=== PATIENT | male | born 1955 | race Caucasian/White ===

== ENCOUNTER → 2020-02-22 | Outpatient (CLI) | payer MEDICARE, BC ==
[~2020-02-22] MED LIST: /ZOLP6ER; ACCU5TAB7; AMLO1TAB24 PO; COLA100C2; DECADRON; FLOM0.4C39 PO; GABA-1171 PO; KEPPRA; LEVE750T5 PO; LEXA1TAB; LORA0.5T; NEUR100C PO; NORV5TAB; PERC5TAB8; PROT1TAB2; SERT-138 PO
== END ==
LOC: M LABSMTC 08:43
PROVIDERS: ATTEND Anesthesiology
DX: Z01.818 Encounter for other preprocedural examination (principal); Z11.59 Encounter for screening for other viral diseases; Z20.828 Contact with and (suspected) exposure to other viral communicable diseases
CPT/HCPCS: C9803; U0003

== ENCOUNTER 2020-02-27 08:00 | Day surgery (SDC) | payer MEDICARE, BC ==
[~2020-02-27] VITALS: Ht 172.7 cm; Wt 93.9 kg
[~2020-02-27 08:00] MED LIST changes: +NS 1,000 ML IV ONE
[2020-02-27] MEDS ORDERED: LIDOCAINE 2% 100MG/5ML SDV (FOR ANES.) As Ordered ONE (09:09)
[2020-02-27] MEDS ORDERED: propofoL 500 MG/50 ML VIAL As Ordered ONE (09:09)
--- NOTE | 2020-02-27 09:28 | ROOR ---
Patient Name: Bc Collins Procedure Date: 02/27/2020 9:08 AM Date of : 1955 Age: 64 Room: [facility] Gender: Male Note Status: Finalized Procedure: Total Colonoscopy to Cecum Indications: High risk colon cancer surveillance: Personal history of colonic polyps, Last colonoscopy: 2011 Providers: Gage Mccoy MD Referring MD: Dung Marshall MD Requesting Provider: Medicines: Monitored Anesthesia Care Complications: No immediate complications. Procedure: Pre-Anesthesia Assessment: - The heart rate, respiratory rate, oxygen saturations, blood pressure, adequacy of pulmonary ventilation, and response to care were monitored throughout the procedure. The Colonoscope was introduced through the anus and advanced to the cecum, identified by appendiceal orifice and ileocecal valve. The colonoscopy was performed without difficulty. The patient tolerated the procedure well. The quality of the bowel preparation was good. Findings: The perianal and digital rectal examinations were normal. Non-bleeding internal hemorrhoids were found during retroflexion. The hemorrhoids were small and Grade I (internal hemorrhoids that do not prolapse). The exam was otherwise without abnormality on direct and retroflexion views. Impression: - Non-bleeding internal hemorrhoids. - The examination was otherwise normal on direct and retroflexion views. - No specimens collected. - The exam was otherwise normal to the cecum. Recommendation: - Patient has a contact number available for emergencies. The signs and symptoms of potential delayed complications were discussed with the patient. Return to normal activities tomorrow. Written discharge instructions were provided to the patient. - High fiber diet. - Discharge patient to home. - Continue present medications. - Repeat colonoscopy in 5 years for surveillance. - Return to referring physician. - The findings and recommendations were discussed with the patient. Gage Mccoy MD Gage Mccoy MD 02/27/2020 9:28:08 AM Electronically signed by Gage Mccoy MD Number of Addenda: 0 Note Initiated On: 02/27/2020 9:08 AM Estimated Blood Loss: Estimated blood loss: none.
[2020-02-27 09:56] VITALS: BP 173/91
== END 2020-02-27 09:59 | disposition home or self-care (01) ==
LOC: M OPP 08:00
PROVIDERS: ATTEND Internal Medicine Gastroenterology
DX: Z12.11 Encounter for screening for malignant neoplasm of colon (principal); Z86.010 Personal history of colon polyps; K64.0 First degree hemorrhoids; Z79.899 Other long term (current) drug therapy; Z87.891 Personal history of nicotine dependence; Z86.73 Personal history of transient ischemic attack (TIA), and cerebral infarction without residual deficits; Z86.69 Personal history of other diseases of the nervous system and sense organs